=== PATIENT | male | born 2005 | race Caucasian/White ===

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

== ENCOUNTER 2024-08-24 21:16 | Emergency (ER) | payer OTHER ==
[2024-08-24] MEDS ORDERED: Sodium Chloride 0.9% 10 ML Syringe FLUSH PRN (21:19)
[2024-08-24] MEDS ORDERED: Sodium Chloride 0.9% 2.5 ML Syringe FLUSH PRN (21:19)
[2024-08-24 21:28] LABS: BASOPHILS ABSOLUTE AUTO 0.03 K/uL (0.00-0.20); BASOPHILS PERCENT AUTO 0.3 % (0.0-1.0); EOSINOPHILS ABSOLUTE AUTO 0.05 K/uL (0.00-0.45); EOSINOPHILS PERCENT AUTO 0.4 % (0.0-6.0); IMMATURE GRAN ABSOLUTE AUTO 0.30 K/uL (0.00-0.05); IMMATURE GRAN PERCENT AUTO 2.7 % (0.0-0.4); LYMPHOCYTES ABSOLUTE AUTO 3.64 K/uL (1.00-4.80); LYMPHOCYTES PERCENT AUTO 32.6 % (24.0-44.0); MEAN PLATELET VOLUME 9.2 fL (9.4-12.4); MONOCYTES ABSOLUTE AUTO 0.49 K/uL (0.00-0.80); MONOCYTES PERCENT AUTO 4.4 % (0.0-8.0); NEUTROPHILS ABSOLUTE AUTO 6.67 K/uL (1.80-7.70); NEUTROPHILS PERCENT AUTO 59.6 % (41.0-71.0); NRBC ABSOLUTE 0.00 K/uL (0.00-0.02); NRBC PERCENT 0.0 /100WBC (0.0-0.2); PLATELET COUNT,PLT 264 K/uL (150-400); RED BLOOD CELL COUNT 3.81 M/uL (4.52-5.90); WHITE BLOOD CELL COUNT,WBC 11.18 K/uL (3.9-11.3)
[2024-08-24 21:42] LABS: INR 1.38 (0.86-1.11)
[2024-08-24 21:50] LABS: A/G RATIO 1.3 (0.9-1.6); ALANINE AMINOTRANSFERASE,ALT 51 IU/L (14-63); ASPARTATE AMNIOTRANSFERASE,AST 66 IU/L (15-37); BILIRUBIN TOTAL 0.5 mg/dL (0.2-1.0); BLOOD UREA NITROGEN,BUN 16 mg/dL (7.0-18.0); CHLORIDE,CL 109 mmol/L (98-107); CREATININE 1.1 mg/dL (0.8-1.3); ETHANOL BLOOD MEDICAL <3 mg/dL; GLUCOSE RANDOM 104 mg/dL (74-106); POTASSIUM,K 3.1 mmol/L (3.5-5.1); PROTEIN TOTAL,TP 5.8 g/dL (6.4-8.2); SODIUM,NA 145 mmol/L (136-148)
[2024-08-24 21:55] LABS: ESTIMATED GFR 99 mL/min (>60)
[2024-08-24 22:00] LABS: CARBON DIOXIDE,CO2 22.7 mmol/L (21.0-32.0)
[2024-08-24] MEDS: Ondansetron 4 MG/2 ML SDV IVPUSH ONE ×2 (22:02→23:05)
[2024-08-24] MEDS: fentaNYL 50 MCG/ML SDV IVPUSH ONE (22:02)
[2024-08-24] MEDS: Diphtheria,Pertussis(Acell),Tetanus Vaccine 0.5 ML Syringe IM ONE (22:06)
[2024-08-24] MEDS: Iopamidol 755 Mg/ML 100 ML Bottle IVPUSH ONE (22:22)
[2024-08-25] MEDS: Ampicillin/Sulbactam Na 3 GM in Sodium Chloride 0.9% 100 ML IV ONE (00:03)
[2024-08-25] MEDS: Lidocaine/Epineph/Tetracaine 3 ML Syringe TOP ONE (00:47)
[2024-08-25] MEDS: Ketorolac 30 MG/ML SDV IVPUSH ONE (00:47)
== END 2024-08-25 02:00 ==
LOC: MW.ED 21:16
DX: S02.609A Fracture of mandible, unspecified, initial encounter for closed fracture (principal); S22.089A Unspecified fracture of T11-T12 vertebra, initial encounter for closed fracture; S01.511A Laceration without foreign body of lip, initial encounter; S01.81XA Laceration without foreign body of other part of head, initial encounter; S29.8XXA Other specified injuries of thorax, initial encounter; S39.91XA Unspecified injury of abdomen, initial encounter; S27.322A Contusion of lung, bilateral, initial encounter; Z23 Encounter for immunization; V28.49XA Other motorcycle driver injured in noncollision transport accident in traffic accident, initial encounter; Y93.55 Activity, bike riding
CPT/HCPCS: 12052; 36415; 70450; 70486; 71045; 71260; 72125; 72131; 72170; 74177; 80053; 80307; 83690; 85025; 85610; 90471; 96361; 96365; 96375; 99285; A9270; J0295; J1885; J2003; J2270; J2405; J3010; J7030; Q9967; 12013